=== PATIENT | male | born 1975 | race Asian ===

== ENCOUNTER 2022-06-03 06:15 | Day surgery (SDC) | payer MEDICAID ==
[~2022-06-03] VITALS: Ht 162.6 cm; Wt 77.1 kg
[2022-06-03] MEDS ORDERED: SIMETHICONE 40 MG/0.6 ML ML ONE (06:26)
[2022-06-03] MEDS ORDERED: MEPERIDINE 100 MG INJ. 100 MG/ML VIAL ONE (06:26)
[2022-06-03] MEDS: MIDAZOLAM HCL 5 MG/5 ML VIAL ONE ×3 (08:19→08:26)
[2022-06-04 07:31] VITALS: BP_SYST 128
== END 2022-06-03 09:50 | disposition home or self-care (01) ==
LOC: SDS 06:15 → SMU 06:15 → SDS 09:50
PROVIDERS: ATTEND Internal Medicine Gastroenterology
DX: R10.9 Unspecified abdominal pain (principal); K29.50 Unspecified chronic gastritis without bleeding; K44.9 Diaphragmatic hernia without obstruction or gangrene; Z79.899 Other long term (current) drug therapy; Z20.822 Contact with and (suspected) exposure to COVID-19
CPT/HCPCS: 36415; 43239; 87081; 88305; 88312; 88313; J2175; J2250; U0003